=== PATIENT | male | born 1975 | race Caucasian/White ===

== ENCOUNTER 2020-12-20 12:16 | Emergency (ER) | payer OTHER ==
[2020-12-20 13:42] LABS: HEMOGLOBIN 15.5 gm/dl (14.0-17.5); RED BLOOD COUNT 5.19 M/UL (4.20-5.50); WHITE BLOOD COUNT 15.3 K/UL (4.5-11.0)
[2020-12-20] MEDS ORDERED: MONODOX100 MG PO (14:49)
[2020-12-20 14:52] LABS: BUN/CREATININE RATIO 12 (0-10)
[2020-12-21 21:09] LABS: CHLAMYDIA TRACHOMATIS, NAA Negative (Negative); NEISSERIA GONORRHOEAE, NAA Negative (Negative)
== END 2020-12-20 17:50 | disposition home or self-care (01) ==
LOC: EDBD 12:16 → ER1 12:16
PROVIDERS: Nurse Practitioner
DX: N39.0 Urinary tract infection, site not specified (principal); I10 Essential (primary) hypertension; F19.10 Other psychoactive substance abuse, uncomplicated; R00.0 Tachycardia, unspecified; Z88.0 Allergy status to penicillin; Z79.899 Other long term (current) drug therapy
CPT/HCPCS: 80053; 80307; 81001; 82550; 82553; 83605; 83690; 83874; 84484; 85025; 85610; 87040; 87086; 93005; 96374; 99284; J2405